=== PATIENT | male | born 1980 | race Caucasian/White ===

== ENCOUNTER 2018-11-11 10:33 | Emergency (ER) | payer SELFPAY ==
[~2018-11-11] VITALS: Ht 170.2 cm; Wt 65.8 kg
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
[2018-11-11] MEDS ORDERED: KETOROLAC TROMETHAMINE INJ 30 MG/ML VIAL ONE (11:28)
[2018-11-11] MEDS ORDERED: HYDROCODONE/APAP 5/325MG 1 EACH TABLET ONE (11:28)
[2018-11-11] MEDS ORDERED: KETOROLAC TROMETHAMINE INJ 30 MG/ML VIAL IM ONE (11:30)
[2018-11-11] MEDS ORDERED: HYDROCODONE/APAP 5/325MG 1 EACH TABLET PO ONE (11:30)
[2018-11-11 13:15] VITALS: BP 130/66
--- NOTE | 2018-11-11 13:16 | NUR ---
Patient discharged to home in stable condition. Written and verbal after care instructions given. Patient verbalizes understanding of instruction.
== END 2018-11-11 13:16 | disposition home or self-care (01) ==
LOC: ER 10:37
DX: S39.012A Strain of muscle, fascia and tendon of lower back, initial encounter (principal); S80.12XA Contusion of left lower leg, initial encounter; V23.4XXA Motorcycle driver injured in collision with car, pick-up truck or van in traffic accident, initial encounter; Y93.55 Activity, bike riding; Y92.89 Other specified places as the place of occurrence of the external cause; Y99.8 Other external cause status
CPT/HCPCS: 73590; 93005; 96372; 99283; J1885